=== PATIENT | female | born 1985 | race Caucasian/White ===

== ENCOUNTER 2018-07-19 07:17 | Day surgery (SDC) | payer MEDICARE, MEDICAID ==
--- NOTE | 2018-07-05 15:24 | HP ---
CC: Dr. Interiano * DATE OF ADMISSION: 07/19/2018. This patient is scheduled for Same Day Surgery admission. DATE OF PREOPERATIVE HISTORY AND PHYSICAL EXAMINATION: Thursday, July 05, 2018. ATTENDING SURGEON: Dr. Jaime Bautista * (dictated by Hazel Scott NP). CHIEF COMPLAINT: Gallstones. HISTORY OF PRESENT ILLNESS: The patient is a 33-year-old morbidly obese female recently evaluated by Dr. Bautista for symptomatic cholelithiasis. The patient was in the [facility] Emergency Department on 05/10/2018 with symptoms of nausea, vomiting, diarrhea, and abdominal pain. CAT scan of the abdomen and pelvis revealed gallstones; there was no biliary duct dilatation or bowel obstruction. There were no abnormal masses or fluid collections noted. Her blood work was without any significant abnormality, except for magnesium 1.8 , AST 221, and ALT 128. Amylase and lipase were normal. There was no elevation in the white blood cell count. She was discharged from the emergency department and was advised to follow-up with her primary care provider, Dr. Interiano. Additionally, the patient is status post Arthur-en-Y gastric bypass in 2014 at [facility]. She weighed close to 400 pounds at the time of surgery. She got as low as 230 and currently weighs 279 pounds. Currently, the patient denies any abdominal pain, nausea, vomiting, or diarrhea. She denies any change in the color of her urine or stool. Dr. Bautista examined the patient has recommended laparoscopic cholecystectomy and described the nature of the surgical procedure, the relevant risks and benefits, and today I reviewed the expected postoperative care and recovery. The patient has had a chance to ask questions and stated that she understands the information and is satisfied with the answers given to her questions. She will sign surgical consent on the day of surgery. PAST MEDICAL HISTORY: Morbid obesity, resolved sleep apnea, and anxiety. PAST SURGICAL HISTORY: Gastric bypass 2015 at [facility]; oral surgery 2017; tonsillectomy and adenoidectomy remotely. MEDICATIONS: 1. Fluoxetine 10 mg p.o. daily. 2. vitamin daily. 3. Thiamine 50 mg daily. 4. Ondansetron 4 mg p.o. q.6 hours prn. 5. Vitamin B1 250 mg daily. 6. ZzzQuil 30 ml at bedtime. 7. Vitamin B12 500 mcg daily. 8. Vitamin D 1,000 international units t.i.d. 9. Nystatin as needed for fungal rash. 10. Omeprazole one tablet daily as needed. 11. Colace 100 mg as needed. 12. MiraLax as needed. 13. Lactulose as needed for constipation. 14. Meladox as needed for insomnia. ALLERGIES: ADHESIVE TAPE CAUSES RASH. FAMILY HISTORY: Positive for diabetes, heart disease, and hypertension in her mother. SOCIAL HISTORY: She is and is a nonsmoker. She denies the use of alcohol or other substances. 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 REVIEW OF SYSTEMS: Constitutional: No fevers, chills, or excessive fatigue. Endocrine: No diabetes or thyroid disease. Hematologic: No easy bruising or bleeding. No previous blood transfusions. Respiratory: No dyspnea on exertion. No chronic cough. Cardiovascular: No anginal chest pain or palpitations. Gastrointestinal: As described in history of present illness. Genitourinary: No dysuria. Last menstrual period started 06/17/2018. Musculoskeletal: No joint or back pain. Integumentary: Mild fungal rash on the left side under the pannus and the patient was advised to start using Nystatin b.i.d. Neurologic: No headache or blurred vision. Psychiatric: Mild developmental disability. General: No history of deep vein thrombosis or pulmonary embolism. No previous anesthesia complications. No history of MRSA. PHYSICAL EXAMINATION GENERAL: The patient is a 33-year-old, morbidly obese female in no acute distress. VITAL SIGNS: Height 67 inches, weight 279 pounds, body mass index 43.7. Blood pressure 118/78, pulse 84 and regular, respiratory rate 18, temperature 97 tympanic. SKIN: Warm, dry, intact, anicteric. HEENT: Benign. Anicteric sclerae. NECK: Supple. No cervical lymphadenopathy. BACK: No CVA tenderness. LUNGS: Breath sounds bilaterally clear and equal. HEART: Regular rate and rhythm. No murmurs or rubs appreciated. ABDOMEN: Obese, multiple well-healed laparoscopic scars. Soft, nondistended, nontender throughout. Negative Ennis sign. No obvious masses or organomegaly, but exam is limited by body habitus. No obvious umbilical hernia. There is a mild fungal rash under the pannus on the left side. EXTREMITIES: No edema. Full range of motion. No skin ulcerations. PELVIC: Exam deferred. RECTAL: Exam deferred. NEUROLOGIC: Alert and oriented times three, steady gait. IMPRESSION: Symptomatic cholelithiasis. PLAN: Same Day Surgery admission to Dr. Bautista's service on Wednesday, July 192018 for laparoscopic cholecystectomy. LINNEA SCOTT, [employer] M[employer] INSPECTOR [id number]/[facility] #: [id number] KALYAN
[~2018-07-19 07:17] MED LIST: Famotidine IV* 10 MG/ML 2 ML (20 mg) IV ONE
[2018-07-19] MEDS ORDERED: Rocuronium* 10 MG/ML VIAL ONE (08:04)
[2018-07-19] MEDS ORDERED: fentaNYL* 50 MCG/ML 2 ML VIAL (100 MCG VIAL) ONE ×2 (08:04→09:56)
[2018-07-19] MEDS ORDERED: Midazolam* 1 MG/ML 5 ML VIAL (5 MG) ONE (08:04)
[2018-07-19] MEDS ORDERED: Bupivacaine 0.5% W/EPI SDV* 30 ML VIAL ONE (08:08)
[2018-07-19] MEDS ORDERED: Lidocaine 1% INJ* 10 MG/ML 30 ML SDV ONE (08:08)
[2018-07-19] MEDS ORDERED: ceFAZolin 2 GM PREMIX in ORs 2 GM/50 ML BAG IVPB ONE (08:13)
[2018-07-19] MEDS ORDERED: Famotidine IV* 10 MG/ML 2 ML (20 mg) ONE (08:13)
[2018-07-19] MEDS ORDERED: Bupivacaine 0.25% EPI 200,000* 30 ML SDV ONE (09:14)
[2018-07-19] MEDS ORDERED: Acetaminophen IV 1GM/100ML * 1,000 MG/100 ML VIAL IVPB ONE (09:25)
[2018-07-19] MEDS ORDERED: DiMENhydriNATE IV* 50 MG/ML VIAL IV PUSH PRN (09:25)
[2018-07-19] MEDS ORDERED: HYDROmorphone INJ1* 1 MG/ML SYRINGE IV PRN (09:25)
[2018-07-19] MEDS ORDERED: Naloxone* 0.4 MG/ML 1 ML VIAL IV PRN (09:25)
[2018-07-19] MEDS ORDERED: DiMENhydriNATE IV* 50 MG/ML VIAL ONE (09:54)
[2018-07-19] MEDS ORDERED: Dexamethasone IV* 4 MG/ML 1 ML (4 MG) ONE (09:54)
[2018-07-19] MEDS ORDERED: Ondansetron INJ* 2 MG/ML VIAL ONE (09:54)
[2018-07-19] MEDS ORDERED: Succinylcholine* 20 MG/ML 10 ML VIAL ONE (09:54)
[2018-07-19] MEDS ORDERED: Ketorolac INJ* 30 MG/ML 1 ML VIAL ONE (09:54)
[2018-07-19] MEDS ORDERED: Propofol* 10 MG/ML 20 ML BTL ONE (09:54)
[2018-07-19 11:06] VITALS: BP 138/66
--- NOTE | 2018-07-19 11:06 | OP ---
Operative Report - Blank - Operative Report Date of Operation: 07/19/18 Note: Brief Operative Note Preop Dx: symptomatic cholecystitis Postop Dx: same Procedure: :Laparoscopic cholcystectomy Anesthesia: GET Surgeon: Lily Pit Recorder : ALLY Aguero Fluids: 1000ml LR EBL: < 50 ml Specimen: gallbladder Drains: none Findings: dictated
[2018-07-19] MEDS ORDERED: Acetaminophen IV 1GM/100ML * 100 ML ONE (11:34)
--- NOTE | 2018-07-19 13:26 | OP ---
CC: Dr. Nesha Interiano * DATE OF OPERATION: 07/19/18 - [facility] DATE OF : 83 SURGEON: Jaime Bautista MD ASSISTANTS: Lilli Vizcaino NP; ALLY Peters ANESTHESIOLOGIST: Dr. Randolph. ANESTHESIA: General anesthesia. PRE-OP DIAGNOSIS: Chronic cholecystitis. POST-OP DIAGNOSIS: Chronic cholecystitis. OPERATIVE PROCEDURE: Laparoscopic cholecystectomy. ESTIMATED BLOOD LOSS: Minimal blood loss. FLUIDS: Crystalloid fluid given. SPECIMEN: Gallbladder with contents. DRAINS: None. COUNTS: Lap pad count and instrument count correct at the end of the procedure. DESCRIPTION OF PROCEDURE: The patient was identified in the preoperative area, marked and consent signed. She was taken to the operating room and placed on the operating table in supine position. Preoperative antibiotics were given. Sequential devices were placed on bilateral lower extremities. General anesthesia was induced. The patient's abdomen was prepped and draped in standard surgical fashion. A time-out was performed. Folds of the umbilicus were elevated anteriorly and a Veress needle inserted into the abdominal cavity, which was then allowed to insufflate to a pressure of 15 mmHg. The patient tolerated the insufflation well. Periumbilical incision was made and a 5-mm trocar inserted. Laparoscope was then inserted through this. There was no evidence of injury from the trocar insertion or from the Veress needle, which was then identified and removed. Additional trocars were then placed in the following position: 12 mm in the subxiphoid area and two 5 mm along the right costal margin. Table was repositioned. An inflamed gallbladder was identified. This was difficult to grasp and was aspirated. Clear bile was removed and this gave us the ability to grasp the fundus of the gallbladder and elevated anteriorly. Liver was somewhat large and it was little difficult to bring it over the liver altogether. The fundus of the gallbladder was identified. Blunt and sharp dissection was carried out to identify best the area of the fundus. This had stones in the area. They were milked back into the body of the gallbladder to allow for grasping at the site. We dissected the cystic duct, cystic artery, reassured the critical view, could see common bile duct. The cystic duct and cystic artery were double clipped and ligated. Posterior branch was also clipped and the gallbladder was removed from the liver bed. We did enter into the gallbladder at the fundus portion as it was adhered to the edge of the liver firmly, but we did ultimately remove the entire gallbladder. We cauterized the last portion of the dissected area where there had been some bleeding. This bleeding was minimal. Review of the cystic duct and cystic artery stump showed no bile or bleeding. I suctioned the area out until the effluent was clear; however, it was clear throughout since the bile itself was remarkably clear. The gallbladder was then removed to the subxiphoid incision with an endoscopic retrieval bag. We had used a 4 x 8 gauze early on to push contents posteriorly to better view this and do dissection with it, and this was removed as well at this point. We did increase the incision to remove the gallbladder, which was filled with large stones. We did not drop any of the stones during dissection as we checked with suction irrigation meticulously. The abdomen was allowed to collapse, trocars removed under direct vision. All 4 skin incisions were reapproximated with 4-0 Monocryl subcuticular sutures followed by Steri-Strip and sterile dressing. The patient woken up and transferred to the PACU in stable condition. [id number]/[facility] #: [id number] KALYAN
[2018-07-20] MEDS ORDERED: Lactated Ringers 1000 ML Bag* 1,000 ML IV SCH (06:00)
[2018-07-20] MEDS ORDERED: Buffered Lidocaine 0.9% SYRIN* 5 ML/SYR SYRINGE INTRADERM ONE (06:00)
== END 2018-07-19 12:12 | disposition home or self-care (01) ==
LOC: OR 07:17
PROVIDERS: ATTEND Surgery
DX: K80.10 Calculus of gallbladder with chronic cholecystitis without obstruction (principal); G47.33 Obstructive sleep apnea (adult) (pediatric); F41.8 Other specified anxiety disorders; E66.01 Morbid (severe) obesity due to excess calories
CPT/HCPCS: 36415; 81025; 84702; 88304; J0330; J0690; J1100; J1240; J1885; J2250; J2405; J2704; J3010